=== PATIENT | female | born 1965 | race Hispanic/Latino ===

== ENCOUNTER 2016-10-13 08:29 | Day surgery (SDC) | payer OTHER ==
[~2016-10-13 08:29] MED LIST: ANCEF/STERILE WATER 2 GM/20 ML 2 GM/20 ML SYRINGE IV SCH; NACL 0.9% 1000 ML 1,000 ML IV SCH; PEPCID PO NR; VERSED IV NR; ceFAZolin 2 GM in NACL 0.9% 100 ML IV ONE
[2016-10-13] MEDS ORDERED: NACL BACTERIOSTATIC INFILTRATI ONE (09:17)
--- NOTE | 2016-10-13 09:32 | Anesthesia Consultation ---
Anesthesia Consult and Med Hx Date of service: 10/13/16 - Airway Anesthetic Teeth Evaluation: Dentures ROM Head & Neck: Adequate Mental/Hyoid Distance: Adequate Mallampati Class: Class II Intubation Access Assessment: Good - Pulmonary Exam CTA: Yes - Cardiac Exam Cardiac Exam: RRR - Pre-Operative Health Status ASA Pre-Surgery Classification: ASA3 Proposed Anesthetic Plan: General - Pulmonary Hx Smoking: Yes (CIGARETTES < 1 PPD X 34 YRS, QUIT 07/2015) Hx Sleep Apnea: No - Cardiovascular System Hx Heart Murmur: Yes (not heard today) - Central Nervous System Hx Psychiatric Problems: No - Endocrine Hx Non-Insulin Dependent Diabetes: Yes (metformin, januvia) - Hematic Hx Anemia: Yes (IN 2008 DUE TO HEAY MENSTRUATIONS) - Other Systems Hx Cancer: No
[2016-10-13] MEDS ORDERED: ZOFRAN IV PRN (09:33)
[2016-10-13] MEDS ORDERED: NORCO 5/325 PO PRN (09:33)
--- NOTE | 2016-10-13 09:33 | Anesthesia Day of Surgery ---
Anesthesia Day of Surgery - Day of Surgery Patient Examined: Yes Patient H&P Reviewed: Yes Patient is NPO: Yes
[2016-10-13 09:48] LABS: Hemoglobin 14.4 gm/dl (10.1-14.3)
[2016-10-13] MEDS ORDERED: SUBLIMAZE ONE (10:04)
[2016-10-13] MEDS ORDERED: DIPRIVAN 10 MG/ML IV ONE (10:04)
[2016-10-13] MEDS ORDERED: XYLOCAINE MPF 2% ONE (10:05)
[2016-10-13] MEDS ORDERED: ZEMURON IV ONE (10:05)
[2016-10-13] MEDS ORDERED: DECADRON ONE (10:05)
[2016-10-13] MEDS ORDERED: NACL 0.9% IR ONE (10:48)
[2016-10-13] MEDS ORDERED: MARCAINE 0.25% INFILTRATI ONE (10:48)
[2016-10-13] MEDS ORDERED: PROAIR IH ONE (11:34)
[2016-10-13] MEDS ORDERED: ZOFRAN ONE (11:42)
[2016-10-13] MEDS ORDERED: NEOSTIGMINE ONE (11:55)
[2016-10-13] MEDS ORDERED: ROBINUL ONE (11:55)
[2016-10-13] MEDS ORDERED: TORADOL ONE (11:57)
--- NOTE | 2016-10-13 12:10 | Brain Death ---
Brain To perform the apnea test: An ABG was obtained prior to testing to confirm prerequisite criteria. The ventilator was disconnected and the patient was observed for respiratory movements. 100% oxygen was delivered at the level of the mis through a catheter inserted inside the ET tube. ABG drawn after [] minutes and mechanical ventilation and oxygenation resumed.
--- NOTE | 2016-10-13 12:12 | Post Operative Note ---
Pre-op diagnosis: Ventral hernia Findings: 2 defects midline - supra umbilical with henriated viable omentum Procedure: laparoscopic mesh repair of ventral hernia Anesthesia: MIAH Surgeon: MARIA ELENA CARLIN Lead Setter: YINA RAY Estimated blood loss: minimal Pathology: none Condition: stable Disposition: PACU
--- NOTE | 2016-10-13 12:15 | Discharge Summary ---
Short Stay Discharge Plan Weight Bearing Status: Full Weight Bearing Wound: change dressing (after 2 days, may shower daily after 2 days: abd binder at all times) Follow up with: ROSINA MUSTAFA MD [Primary Care Provider] - 7 Days Prescriptions: Ondansetron [Zofran TAB] 4 mg PO Q8HR PRN #14 tablet PRN Reason: Nausea oxyCODONE /ACETAMINOPHEN [Percocet 5/325] 1 tab PO Q4HR PRN #30 tab PRN Reason: Pain
[2016-10-13] MEDS: DILAUDID IV PRN ×2 (12:35→12:45)
--- NOTE | 2016-10-13 13:10 | Post Anesthesia Evaluation ---
- Post Anesthesia Evaluation Patient Participated: Yes Airway Patent: Yes Stable Respiratory Function: Yes Temp > 96.8F: Yes Pain Manageable: Yes Adequeate Hydration: Yes Anesthesia Complications: No Block Receding Appropriately: Not Applicable
--- NOTE | 2016-10-13 13:22 | Operative Report ---
PREOPERATIVE DIAGNOSIS: Ventral hernia with omentum. POSTOPERATIVE DIAGNOSIS: Ventral hernia, two defects. OPERATIVE PROCEDURE: Laparoscopic mesh repair of ventral hernia. ANESTHESIA: General endotracheal. SURGEON: Roby Prasad MD PRODUCTION LINE WORKER: Dr. Erwin Pride. INDICATIONS: A 51-year-old female patient presenting with a partially reducible supraumbilical ventral hernia in the midline. FINDINGS: There was no umbilical hernia. Supraumbilical defects were noted in 2 locations. The one closer to the umbilicus, measured 2 x 2 cm with the fair amount of herniated omentum. Another defect measured less than 1 cm superior to this with minimal amount of preperitoneal fat that was herniated. Adhesions noted away from the hernial sac to the left upper abdomen and inferiorly. No bowel adhesions were evident. Visualized part of the liver appeared normal. No inguinal hernia evident. DESCRIPTION OF PROCEDURE: After satisfactory induction of general endotracheal anesthesia, abdomen was prepped and draped. A left mid lateral incision was made and a Veress needle was inserted in the peritoneal cavity. After adequate carbon dioxide insufflation, a 5 mm trocar was inserted, through this a 5 mm 30-degree angle scope was placed and under direct visualization, left upper quadrant 10 mm and a left lower quadrant 5 mm ports were placed. Adhesions to the parietal peritoneum was taken down between the omentum and the parietal peritoneum using EndoShears with minimal amount of cautery. All the adhesions away from the hernial sac were taken down. The herniated omentum was completely reduced and was found to be viable. Both defects were well visualized and the falciform ligament was taken down as much proximally as possible. Intra-abdominal pressure was reduced to 10 mmHg. The larger defect was approximated using an Endo Close needle with a 0 Vicryl tie. Both the defects were covered with a single piece of 10 x 15 cm Proceed type mesh. On the polypropylene aspect superiorly and inferiorly, Vicryl sutures were placed. The mesh was moistened and inserted through the 11 mm trocar and incisions were made and the suture passer needle was passed into the peritoneal cavity and the Vicryl sutures were pulled up and the mesh was secured . An outer row and inner row ProTackers were placed to anchor the mesh. Hemostasis was quite adequate. Desufflation was done and all the trocars were removed under direct visualization. All the incisions were closed with 4-0 Monocryl sutures. Pressure dressings were placed over the hernial area and abdominal binder was placed. There was minimal blood loss and she tolerated the procedure well, was extubated and transferred to postanesthesia care unit in satisfactory condition. JOB# [id number] MNN/NTS
[2016-10-13 14:33] VITALS: BP 157/74
== END 2016-10-13 14:25 | disposition home or self-care (01) ==
LOC: OR 08:29
PROVIDERS: ATTEND Surgery
DX: K43.9 Ventral hernia without obstruction or gangrene (principal); M19.90 Unspecified osteoarthritis, unspecified site; E11.9 Type 2 diabetes mellitus without complications; E78.00 Pure hypercholesterolemia, unspecified
CPT/HCPCS: 36415; 49652; 82962; 85014; 85018; C1781; J0690; J1100; J1170; J1885; J2250; J2405; J2704; J2710; J3010; J7030

== ENCOUNTER 2018-01-07 08:29 | Outpatient (CLI) | payer OTHER ==
--- NOTE | 2018-01-07 11:06 | Ultrasound Report ---
Limited abdominal ultrasound: Right upper quadrant pain. Images of the liver and pancreas are unremarkable. The gallbladder is normally distended and the wall was not thickened. Multiple echodensities with some are shadowing are present within the lumen. No pericholecystic fluid identified. The CBD diameter is 2 mm. The right kidney is echogenically unremarkable and has a length of 10.4 cm. Normal cortical thickness. The proximal abdominal aorta diameter is less than 2 cm. Impression: Cholelithiasis.
== END 2018-01-07 08:30 | disposition home or self-care (01) ==
LOC: SPVWC 08:29
PROVIDERS: ATTEND Internal Medicine
DX: K80.20 Calculus of gallbladder without cholecystitis without obstruction (principal); K21.9 Gastro-esophageal reflux disease without esophagitis; E78.00 Pure hypercholesterolemia, unspecified; E11.9 Type 2 diabetes mellitus without complications; Z87.891 Personal history of nicotine dependence
CPT/HCPCS: 76705

== ENCOUNTER 2018-10-30 08:53 | Outpatient (CLI) | payer OTHER ==
--- NOTE | 2018-10-30 11:08 | Mammography Report ---
BILATERAL DIGITAL DIAGNOSTIC MAMMOGRAM with CAD and LEFT AXILLARY/BREAST ULTRASOUND: 10/30/18 CLINICAL: Palpable lump left axilla. COMPARISON:03/16/16 FINDINGS: The breasts are mostly fatty.No mass, suspicious architectural distortion or suspicious calcifications . Benign-appearing lymph nodes in the left axilla and no mammographic finding at a palpable marker. Ultrasound of the left axilla demonstrated normal fat with no mass, cyst or shadowing. Several small benign-appearing lymph nodes with central fat. No suspicious lymph nodes. IMPRESSION: Negative mammogram and negative left axillary ultrasound. BI-RADS CATEGORY: 2 -- Benign RECOMMENDATION: Clinical follow-up of the palpable area and routine mammographic screening in one year. ACR BI-RADS MAMMOGRAPHIC CODES: 0 = Needs additional imaging evaluation; 1 = Negative; 2 = Benign; 3 = Probably benign; 4 = Suspicious; 5 = Malignant; 6 = Known biopsy-proven malignancy COMMENT: 1. Dense breast tissue, i.e., adenosis, fibrocystic changes, etc., may obscure an underlying neoplasm. 2. Approximately 10% of cancers are not detected with mammography. 3. A negative mammography report should not delay biopsy if a clinically suspicious mass is present. COMMENT: Patient follow-up letters are generated by our [employer] application.
--- NOTE | 2018-10-30 11:24 | XRay Report ---
XRAY LEFT SHOULDER THREE VIEWS: 10/30/18 08:53:00 CLINICAL: Left shoulder pain. FINDINGS: Mild osteopenia. No fracture or dislocation. Mild glenohumeral joint arthritis. The acromioclavicular joint is normal. Normal soft tissues. IMPRESSION: Mild glenohumeral osteoarthritis.
== END 2018-10-30 08:54 | disposition home or self-care (01) ==
LOC: SPVWC 08:53
PROVIDERS: ATTEND Internal Medicine
DX: N63.32 Unspecified lump in axillary tail of the left breast (principal); M19.012 Primary osteoarthritis, left shoulder; E78.00 Pure hypercholesterolemia, unspecified; K21.9 Gastro-esophageal reflux disease without esophagitis; E11.9 Type 2 diabetes mellitus without complications; Z87.891 Personal history of nicotine dependence
CPT/HCPCS: 77066